=== PATIENT | male | born 2005 | race Caucasian/White ===

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

== ENCOUNTER 2024-02-27 16:41 | Emergency (ER) | payer BC ==
[~2024-02-27] VITALS: Ht 185.4 cm; Wt 77.1 kg
[~2024-02-27 16:41] MED LIST changes: +ZITHROMAX250 MG PO
[2024-02-27 18:29] LABS: BILIRUBIN Negative (Negative); BLOOD 3+ (Negative); CLARITY Cloudy (Clear); COLOR Dark Yellow (Yellow); GLUCOSE Negative (Negative); KETONE 1+ (Negative); LEUKO ESTERASE 2+ (Negative); NITRITE Positive (Negative); PH 5.5 (4.5-8.0); SPECIFIC GRAVITY >= 1.030 (1.001-1.030)
[2024-02-27 18:42] LABS: BACTERIA 2+; MUCOUS 1+; RBC 51-100 rbc/hpf (0-2); WBC 51-100 wbc/hpf (0-5)
[2024-02-27] MEDS ORDERED: Doxycycline Hyclate 100 MG CAP PO ONE (18:50)
[2024-02-27] MEDS ORDERED: VIBRAMYCIN100 MG PO (18:57)
== END 2024-02-27 19:53 | disposition home or self-care (01) ==
LOC: ED 16:41
PROVIDERS: Nurse Practitioner Family
DX: N39.0 Urinary tract infection, site not specified (principal)

== ENCOUNTER 2024-06-27 21:42 | Emergency (ER) | payer BC ==
[~2024-06-27] VITALS: Ht 182.8 cm; Wt 77.1 kg
== END 2024-06-27 23:34 | disposition home or self-care (01) ==
LOC: ED 21:42
DX: S09.8XXA Other specified injuries of head, initial encounter (principal); W21.89XA Striking against or struck by other sports equipment, initial encounter; Y93.22 Activity, ice hockey; Y92.328 Other athletic field as the place of occurrence of the external cause; Y99.8 Other external cause status

== ENCOUNTER 2024-10-04 15:10 | Emergency (ER) | payer BC ==
[~2024-10-04] VITALS: Ht 182.9 cm; Wt 77.1 kg
[2024-10-04] MEDS ORDERED: Oxymetazoline Hydrochloride Nasal 15 ml bottle NAS ONE ×2 (15:15→15:50)
== END 2024-10-04 15:52 | disposition home or self-care (01) ==
LOC: ED 15:10
DX: R04.0 Epistaxis (principal)